=== PATIENT | female | born 1995 | race Caucasian/White ===

== ENCOUNTER 2023-02-06 11:56 | Emergency (ER) | payer MEDICAID, SELFPAY ==
[2023-02-06 11:58] VITALS: BP 148/98; PULSE 111; RESP 20; TEMP 36.2; O2SAT 98; BMI 43.2
[2023-02-06 12:28] LABS: Absolute Lymphocyte Count 2.82 X10^3/uL (0.83-4.51); Absolute Neutrophil Count 5.3 X10^3/uL (2.0-7.7); Basophil# 0.11 X10^3/uL; Basophil% 1.2 % (0-1); Eosinophil# 0.51 X10^3/uL; Eosinophils% 5.4 % (0-5); Hematocrit 42.4 % (37-47); Hemoglobin 13.6 g/dL (12.0-15.0); Lymphocyte # 2.82 X10^3/ul (0.83-4.51); Lymphocyte % 29.6 % (19-41); Mean Corp Hgb Conc 32.1 g/dL (32-36); Mean Corpuscular Volume 84.3 fL (81-99); Mean Platelet Vol. 8.2 fl (6.2-12.0); Monocyte# 0.75 X10^3/uL; Monocyte% 7.9 % (0-10); NRBC Flagged by Analyzer 0 % (0-5); Neutrophil # 5.31 X10^3/uL (2.7-7.7); Neutrophil % 55.6 % (47-70); Platelet Count 443 K/mm3 (150-450); RBC Distribution Width CV 13.2 % (11.6-14.6); RBC Distribution Width SD 40.8 fl (35.1-43.9); Red Blood Count 5.03 M/mm3 (4.2-5.4); White Blood Count 9.5 K/mm3 (4.4-11.0)
[2023-02-06 12:38] LABS: Internal QC Validated? YES +Cl - CLEAR BKGD; Pregnancy, Serum, hCG Quali. NEGATIVE Negative
[2023-02-06 12:57] LABS: Bacteria 0 SEEN /hpf (None Seen); Red Blood Cells-Urine 0 SEEN /hpf (0-5)
[2023-02-06 13:12] LABS: Color, Urine Yellow (Yellow); Glucose, Dipstick Normal (Normal); Ketone-Dipstick Negative (Negative); Leukocyte Esterase-Dipstick 100 /ul (Negative); Nitrite-Dipstick Negative (Negative); Occult Blood-Urine Negative /ul (Negative); Protein-Dipstick 15 mg/dl (Negative); Urine Bilirubin Dipstick Negative (Negative); Urine Clarity Sl. Cloudy (Clear); Urine Urobilinogen Normal (Normal)
[2023-02-06 13:18] LABS: Amorphous Sediment 1+; Mucous, Urine 1+ /hpf (<or=2+); Squamous Epithelial Cells - UA 5-10 SEEN /hpf (5-10); White Blood Cells 0-5 SEEN /hpf (0-5)
--- NOTE | 2023-02-06 14:07 | EDS_ITS ---
HPI HPI - Female History of Present Illness Chief Complaint: Female C/O Detail of Chief Complaint: Presents with pelvic pain and bleeding with intercourse Informant: patient Pain Pain: Positive for Pelvic Pain Onset: Today Context: Sudden Onset Timing: Continuous Quality: Positive for Aching Location: Suprapubic Current Severity: Mild Maximum Severity: Moderate Worsened by: [place] Bleeding Issue: Positive for Vaginal bleeding (With intercourse yesterday and recently with intercourse.) Associated Symptoms Associated Symptoms: Negative for Dysuria, Urgency, Hematuria or Missed Period Last known menstrual period: Has not been compliant with her control pills. Sexually: Positive for Active and Single Partner P: 0 Ab: 1 Narrative Narrative: There is a 27-year-old female who presents with pelvic pain that started this morning. She has noted vaginal bleeding with intercourse recently. She also complains of discomfort yesterday with intercourse. She denies history of STI. She denies history ovarian cysts or endometriosis. She denies urinary symptoms. She denies history of renal or ureteral lithiasis. She denies back or flank pain. She denies vaginal discharge. She has been once and had an elective . Prior similar symptoms: No Recent Illness/Hospitalization: No PFSH PFSH Medical History (Updated 02/06/23 @ 14:[address] Barak Ortiz MD) Medical History no medical history no medical history Home Medications ibuprofen 600 mg tablet 600 mg PO Q6H PRN PRN pain #10 TABLETS 02/06/23 [Rx Last Taken Unknown] Allergy/AdvReac Type Severity Reaction Status Date / Time No Known Allergies Allergy Verified 02/06/23 11:57 Social History (Updated 02/06/23 @ 14:[address] Barak Ortiz MD) household members: significant other Smoking Status: Never smoker ROS ROS ED Constitutional Constitutional ED: Denies chills, fever(s), subjective or sweats Eyes Eyes: Denies blurry vision, change in vision or diplopia ENT ENT ED: Denies ear pain, rhinorrhea or sore throat Cardiovascular Cardiovascular: Denies chest pain or palpitations Respiratory/Chest Respiratory/Chest: Denies cough, dyspnea or dyspnea on exertion Gastrointestinal Gastrointestinal: Reports abdominal pain and nausea; Denies constipation, diarrhea, melena or vomiting Genitourinary Genitourinary ED: Denies dysuria, hematuria or urinary frequency Musculoskeletal Musculoskeletal: Denies arthralgias, myalgias or neck pain Integumentary Denies rash Neurologic Neurologic: Denies headache(s), paresthesias or weakness Endocrine Endocrinology: Denies heat intolerance or polydipsia Hematologic/Lymphatic Hematologic/Lymphatic: Denies easy bleeding or easy bruising EXAM Physical Exam Const Vital Signs: 02/06/23 11:58 Temperature 97.2 F L Temperature Source Temporal Pulse Rate 111 H Respiratory Rate 20 H Blood Pressure 148/98 H Blood Pressure Mean 114 Pulse Ox 98 Oxygen Delivery Method Room Air Positive well nourished, well developed and obese General Appearance ED: well developed and NAD; Negative for pallor Nutritional Appearance: obese HEENT Reports TM's clear and moist mucous membranes HEENT Narrative: Head is atraumatic and normocephalic. Posterior pharynx is normal. Tympanic Membrane ED: Yes TM's clear Eyes PERRL and EOMs intact bilaterally General Eye ED: Negative for pale conjunctiva or scleral icterus Neck no lymphadenopathy, supple and no JVD Chest Wall inspection of chest normal and palpation of chest normal Resp normal respiratory effort and clear to auscultation bilaterally Cardio regular rhythm, S1 normal heart sound, no murmurs and no JVD Rate: tachycardic GI soft to palpation, non-distended and no masses; Negative for non-tender Auscultation: hypoactive bowel sounds Palpation: tender suprapubic; Negative for guarding, rigid, hepatomegaly or splenomegaly Narrative: External genitalia appear normal. Vaginal mucosa is normal. Cervical mucosa is normal. There is no vaginal discharge noted. There is semen noted in the vaginal vault. Patient had discomfort on bimanual exam. There is discomfort pushing on the bladder as well as the right left adnexal area. Patient did not have cervical motion tenderness. Patient states her pain is improved markedly. This would raise concern that pain was due to a ruptured ovarian cyst. Patient was told that she was tested for a sexually transmitted disease. If test results are positive she will be contacted and will need treatment. Back/Spine no CVA tenderness Thoracic Spine / Upper Back: Negative for thoracic spinal tenderness Lumbar Spine / Lower Back: Negative for lumbar spinal tenderness Extremity normal to inspection and full ROM Neuro oriented x3, CN's II-XII intact bilaterally and no sensory deficits noted Sensorium / Orientation: alert Motor Exam: strength 5/5 throughout Psych mental status grossly normal Skin no rashes or lesions noted and no wounds General Skin Exam: Negative for jaundice or pallor MDM MDM MDM Narrative Medical decision making narrative: Since patient is not compliant with control pills need to rule out . Also need to consider ovarian cyst, ovarian torsion, STI, cervicitis. CBC, UA and serum test were obtained. Lab Data Attestation: I reviewed the patient's lab results. Lab results narrative: BC is normal. Serum test is negative. UA is unremarkable. Labs: Laboratory Results - last 24 hr 02/06/23 02/06/23 12:20 12:45 WBC 9.5 RBC 5.03 Hgb 13.6 Hct 42.4 MCV 84.3 MCH 27.0 MCHC 32.1 RDW Std Deviation 40.8 RDW Coeff of [place] 13.2 Plt Count 443 MPV 8.2 Immature Gran % (Auto) 0.300 Neut % (Auto) 55.6 Lymph % (Auto) 29.6 [place] % (Auto) 7.9 Eos % (Auto) 5.4 H Baso % (Auto) 1.2 H Absolute Neuts (auto) 5.3 Absolute Lymphs (auto) 2.82 Nucleated RBC % 0 Serum , Qual NEGATIVE Urine Color Yellow Urine Clarity Sl. Cloudy Urine pH 6.0 Ur Specific [place] 1.020 Urine Protein 15 H Urine Glucose (UA) Normal Urine Ketones Negative Urine Occult Blood Negative Urine Nitrite Negative Urine Bilirubin Negative Urine Urobilinogen Normal Ur Leukocyte Esterase 100 H Urine RBC 0 SEEN Urine WBC 0-5 SEEN Ur Squamous Epith Cells 5-10 SEEN Amorphous Sediment 1+ Urine Bacteria 0 SEEN Urine Mucus 1+ Discharge Plan Triage Chief Complaint: Female C/O ED Provider: Barak Ortiz Dx/Rx/DC Orders Clinical Impression: Acute pain in female pelvis, Dyspareunia, Ovarian cyst rupture Instructions: Treating a Ruptured Ovarian Cyst, ED Ovarian Cyst Prescriptions: New ibuprofen 600 mg tablet 600 mg PO Q6H PRN PRN (Reason: pain) Qty: 10 0RF Primary Care Provider: Gretchen Richey Referrals: Gretchen Richey MD [Primary Care Provider] - 3-5 Days if not improving Disposition Disposition: Home, Self Care
== END 2023-02-06 14:55 | disposition home or self-care (01) ==
PROVIDERS: Emergency Provider Emergency Medicine; PCP Family Medicine; Visit Provider Emergency Medicine
DX: N83.209 Unspecified ovarian cyst, unspecified side (principal); N94.10 Unspecified dyspareunia; E66.9 Obesity, unspecified
CPT/HCPCS: 81001; 84703; 85025; 87491; 87591; 99282; A4216

== ENCOUNTER 2023-09-10 19:34 | Emergency (ER) | payer MEDICAID, SELFPAY ==
[2023-09-10 19:35] VITALS: BP 126/71; PULSE 124; RESP 18; TEMP 36.4; O2SAT 99; BMI 45.1
--- NOTE | 2023-09-10 19:55 | US_ITS ---
INDICATION: bleeding EXAMINATION: US OB Transvaginal TECHNIQUE: Transvaginal (for optimal evaluation of the adnexa) pelvic ultrasound was performed. Grayscale, spectral waveform, and color flow Doppler evaluation of the adnexa. COMPARISON: None. FINDINGS: UTERUS: Measures 8.8 cm in length.. RIGHT OVARY: Measures 2.4 x 2.1 x 2 cm. Normal. LEFT OVARY: Measures 3 x 2.2 x 1.7 cm. Normal. FREE FLUID: None. INTRAUTERINE GESTATIONAL SAC(s) (size/shape): Not visualized. No adnexal ectopic visualized. US/Transvaginal w/Preg US IMPRESSION: of unknown location. No intrauterine gestational sac or adnexal ectopic visualized. Recommend serial beta hCGs and follow-up OB ultrasound in 1-2 weeks. Electronically Signed: Antwon Fish MD at 21:41 EDT ,
--- NOTE | 2023-09-10 19:56 | ED.VIS.FEGU ---
HPI HPI - Female History of Present Illness Chief Complaint: Vag Bld, Preg Detail of Chief Complaint: Vaginal bleeding Informant: patient Narrative Narrative: Patient presents to the emergency department complaint of vaginal bleeding. Patient states the bleeding started yesterday and was mild to some spotting. Now a little heavier but still less than a.. She is not passing clots or tissue. She describes lower abdominal cramping. Patient is G2, P0 with prior . She denies fever or recent illness. She is currently being treated for UTI and still on antibiotic. PFSH PFS Medical History (Updated 09/10/23 @ 22:[address] Gary Man, DO) Home Medications ?Medication ?Instructions ?Recorded ?Last Taken ?Type ibuprofen 600 mg tablet 600 mg PO Q6H PRN PRN pain #10 02/06/23 Unknown Rx TABLETS Allergy/AdvReac Type Severity Reaction Status Date / Time No Known Allergies Allergy Verified 02/06/23 11:57 Social History (Updated 02/06/23 @ 14:[address] Barak Ortiz MD) household members: significant other Smoking Status: Never smoker ROS ROS ED Review of Systems ROS Unobtainable: other Constitutional Constitutional ED: Reports lethargy; Denies chills, fever(s), sweats or weight loss Eyes Eyes: Denies blurry vision, change in vision or diplopia ENT ENT ED: Denies rhinorrhea or sore throat Cardiovascular Cardiovascular: Denies chest pain, orthopnea or racing heartbeat Respiratory/Chest Respiratory/Chest: Denies cough, dyspnea, dyspnea on exertion, orthopnea or sputum Gastrointestinal Gastrointestinal: Reports abdominal pain; Denies diarrhea, nausea or vomiting Genitourinary Genitourinary ED: Reports other Details: Vaginal bleeding with ; Denies dysuria, hematuria or urinary frequency Musculoskeletal Musculoskeletal: Denies arthralgias, back pain, myalgias or neck pain Integumentary Denies abscess, Abrasions or rash Neurologic Neurologic: Denies headache(s) or weakness Psychiatric Psychiatric: Denies anxiety, depression or suicidal thoughts Endocrine Endocrinology: Denies polydipsia, polyphagia or polyuria Hematologic/Lymphatic Hematologic/Lymphatic: Denies easy bleeding, easy bruising or lymphadenopathy Allergic/Immunologic Allergic/Immunologic ED: Denies mouth swelling, tongue swelling or urticaria EXAM Physical Exam Const Vital Signs: 09/10/23 19:35 Temperature 97.6 F L Temperature Source Temporal Pulse Rate 124 H Respiratory Rate 18 Blood Pressure 126/71 H Blood Pressure Mean 89 Pulse Ox 99 Oxygen Delivery Method Room Air Positive well nourished and well developed General Appearance ED: well developed and NAD HEENT Reports TM's clear and moist mucous membranes normocephalic and atraumatic; Negative for trauma or tenderness Tympanic Membrane ED: Yes TM's clear Eyes PERRL and EOMs intact bilaterally General Eye ED: Negative for pale conjunctiva or scleral icterus Neck no lymphadenopathy, supple and no JVD General: Negative for tenderness Chest Wall inspection of chest normal and palpation of chest normal Chest: Negative for tenderness Resp normal respiratory effort and clear to auscultation bilaterally Effort and Inspection: Negative for respiratory distress or pain with movement Auscultation: Negative for rhonchi, wheezes or diminished lung sounds Cardio regular rate, regular rhythm, S1 normal heart sound, S2 normal heart sound and no murmurs Peripheral Pulses: pulses 2+ throughout GI normal to inspection, nondistended, normoactive bowel sounds, soft to palpation, non-tender, non-distended and no masses GI Narrative: Mild tenderness palpation over left lower pelvis and left lower quadrant. No rebound, rigidity, or pineal signs. No mass palpated. Back/Spine no CVA tenderness and no thoracic nor lumbar tenderness Extremity normal to inspection General Extremety ED: Negative for edema General Extremity: Negative for edema Neuro oriented x3, CN's II-XII intact bilaterally, no sensory deficits noted and gait normal Sensorium / Orientation: awake, alert, oriented to person, oriented to place and oriented to time Motor Exam: strength 5/5 throughout and strength abnormal Psych mental status grossly normal Skin no rashes or lesions noted and no wounds MDM MDM MDM Narrative Medical decision making narrative: Presents with vaginal bleeding and thinks she is about 5 weeks . Established. CBC with differential white count 9.8 with hemoglobin 13.9 and platelet count of 454. Chemistries unremarkable. hCG quant was 50. Urinalysis normal. Blood type is A-. Patient had a pelvic ultrasound that did not show any evidence of intrauterine or evidence of ectopic. Discussed case with CLIENT ONBOARDING ANALYST on-call Dr. Cao who did not feel patient needed RhoGAM. She will require repeat quant levels in 2 days. Was already written by Dr. Cao. Patient advised to return to the ER if worsening pain, persistent heavy bleeding such as more than a pad an hour for 4 consecutive hours or condition should worsen anyway. Lab Data Attestation: I reviewed the patient's lab results. Labs: Laboratory Results - last 24 hr 09/10/23 09/10/23 20:06 20:10 WBC 9.8 RBC 5.02 Hgb 13.9 Hct 42.5 MCV 84.7 MCH 27.7 MCHC 32.7 RDW Std Deviation 41.5 RDW Coeff of [place] 13.4 Plt Count 454 H MPV 9.2 Immature Gran % (Auto) 0.200 Neut % (Auto) 51.2 Lymph % (Auto) 35.6 [place] % (Auto) 8.1 Eos % (Auto) 4.0 Baso % (Auto) 0.9 Absolute Neuts (auto) 5.0 Absolute Lymphs (auto) 3.47 Nucleated RBC % 0 HCG, Quant 50 H Urine Color Yellow Urine Clarity Sl. Cloudy Urine pH 5.0 Ur Specific [place] 1.025 Urine Protein 30 H Urine Glucose (UA) Normal Urine Ketones Negative Urine Occult Blood 150 H Urine Nitrite Negative Urine Bilirubin Negative Urine Urobilinogen Normal Ur Leukocyte Esterase 100 H Urine RBC 0 SEEN Urine WBC 0-5 SEEN Ur Squamous Epith Cells 0-5 SEEN Urine Bacteria 0 SEEN Urine Mucus 0 SEEN Blood Type A NEGATIVE Radiography Diagnostic Testing: Clinical Impression(s) from Imaging Studies Obstetrics Ultrasound 09/10/23 19:55 IMPRESSION: of unknown location. No intrauterine gestational sac or adnexal ectopic visualized. Recommend serial beta hCGs and follow-up OB ultrasound in 1-2 weeks. Electronically Signed: Antwon Fish MD at 21:41 EDT , Discharge Plan Triage Chief Complaint: Vag Bld, Preg ED Provider: Gary Man Dx/Rx/DC Orders Clinical Impression: Threatened in first trimester Instructions: Miscarriage Threatened Prescriptions: No Action ibuprofen 600 mg tablet 600 mg PO Q6H PRN PRN (Reason: pain) Qty: 10 0RF Primary Care Provider: Care Physician,No Primary Referrals: Gretchen Richey MD [Non-Staff] - Ania Cao DO [Med Staff - Active Staff] - 2 Days Print Language: Kinyarwanda Disposition Disposition: Home, Self Care
[2023-09-10 20:12] LABS: Bacteria 0 SEEN /hpf (None Seen); Mucous, Urine 0 SEEN /hpf (<or=2+); Red Blood Cells-Urine 0 SEEN /hpf (0-5)
[2023-09-10 20:29] LABS: Absolute Lymphocyte Count 3.47 X10^3/uL (0.83-4.51); Basophil# 0.09 X10^3/uL; Basophil% 0.9 % (0-1); Eosinophil# 0.39 X10^3/uL; Hematocrit 42.5 % (37-47); Hemoglobin 13.9 g/dL (12.0-15.0); Lymphocyte # 3.47 X10^3/ul (0.83-4.51); Lymphocyte % 35.6 % (19-41); Mean Corp Hgb Conc 32.7 g/dL (32-36); Mean Corpuscular Hgb 27.7 pg (27.0-32.0); Mean Corpuscular Volume 84.7 fL (81-99); Mean Platelet Vol. 9.2 fl (6.2-12.0); Monocyte# 0.79 X10^3/uL; Monocyte% 8.1 % (0-10); NRBC Flagged by Analyzer 0 % (0-5); Neutrophil % 51.2 % (47-70); Platelet Count 454 K/mm3 (150-450); RBC Distribution Width CV 13.4 % (11.6-14.6); RBC Distribution Width SD 41.5 fl (35.1-43.9); Red Blood Count 5.02 M/mm3 (4.2-5.4); White Blood Count 9.8 K/mm3 (4.4-11.0)
[2023-09-10 20:37] LABS: Color, Urine Yellow (Yellow); Glucose, Dipstick Normal (Normal); Ketone-Dipstick Negative (Negative); Leukocyte Esterase-Dipstick 100 /ul (Negative); Nitrite-Dipstick Negative (Negative); Occult Blood-Urine 150 /ul (Negative); Protein-Dipstick 30 mg/dl (Negative); Specific Gravity, Urine 1.025 (1.002-1.030); Urine Bilirubin Dipstick Negative (Negative); Urine Clarity Sl. Cloudy (Clear); Urine Urobilinogen Normal (Normal)
[2023-09-10 20:39] LABS: hCG Titer Quant., Serum 50 mIU/mL (1-3)
[2023-09-10 20:44] LABS: Squamous Epithelial Cells - UA 0-5 SEEN /hpf (5-10); White Blood Cells 0-5 SEEN /hpf (0-5)
[2023-09-10 21:34] VITALS: BP 138/99; PULSE 98; RESP 18; O2SAT 99
== END 2023-09-10 22:19 | disposition home or self-care (01) ==
PROVIDERS: Emergency Provider Emergency Medicine; Visit Provider Emergency Medicine
DX: O20.0 Threatened abortion (principal); Z3A.01 Less than 8 weeks gestation of pregnancy
CPT/HCPCS: 76817; 81001; 84702; 85025; 86900; 86901; 99282; A4216

== ENCOUNTER 2023-09-18 12:05 | Emergency (ER) | payer MEDICAID, SELFPAY ==
[2023-09-18 12:05] VITALS: BP 140/100; PULSE 98; RESP 16; TEMP 36.3; O2SAT 96; BMI 45.0
[2023-09-18 13:35] LABS: hCG Titer Quant., Serum 40 mIU/mL (1-3)
[2023-09-18 13:41] LABS: AST(SGOT) 21 U/L (15-37); Alanine Aminotransfer ALT/SGPT 29 U/L (13-56); Albumin, Serum 3.7 g/dL (3.2-5.0); Alkaline Phosphatase 63 U/L (45-117); Anion Gap 8 (5-15); BUN 11 mg/dL (7-18); BUN/Creat Ratio 12.9 RATIO (10-20); Calcium,Total 9.3 mg/dL (8.5-10.1); Chloride 105 mmol/L (98-107); Creatinine, Serum 0.85 mg/dL (0.55-1.02); EST Glomerular Filtration Rate 83 mL/min (>60); Est Glom Filt Rate - Afr Amer 101 mL/min (>60); Estimated Creatinine Clearance 136.22 ml/min; Globulin 3.7 g/dL (2.2-4.2); Glucose 106 mg/dL (74-106); Potassium 4.3 mmol/L (3.5-5.1); Protein, Total 7.4 g/dL (6.4-8.2); Sodium Level 139 mmol/L (136-145)
[2023-09-18 14:05] VITALS: BP 121/82; PULSE 86; RESP 16; O2SAT 98
[2023-09-18] MEDS: Ondansetron 4 MG/2 ML Vial IV (14:28)
[2023-09-18] MEDS: Ketorolac 15 MG/ML Vial IV (14:28)
[2023-09-18] MEDS: METHOTREXATE IM (15:18)
--- NOTE | 2023-09-18 15:19 | NURSING ---
IM INJECTION PER MD
--- NOTE | 2023-09-18 15:45 | EDS_ITS ---
HPI HPI - Female History of Present Illness Chief Complaint: Vag Bld, Preg Informant: patient Narrative Narrative: Patient is G2, P0 presenting with continued cramping and vaginal spotting in early . Patient is been diagnosed with a nonviable and follows with [facility] [employer]. She states that she has had multiple blood draws over the past week and her quant's have been steady. She has had 2 pelvic ultrasounds have not shown anything. She had increased pain today so she was instructed to come to the emergency room by OB triage nurse. Patient was seen in our ER on 09/09 where she had a quant of 50 and a transvaginal ultrasound which did not show any products of conception or signs of IUP. She is since followed up and had multiple blood draws most recently her quant was 46 yesterday and 2 days before that was 32. She has had a repeat pelvic ultrasound which showed no changes. Has not taken any medication for her cramping. No other complaints or concerns reported at this time [facility] Medical History Home Medications ?Medication ?Instructions ?Recorded ?Last Taken ?Type ibuprofen 600 mg tablet 600 mg PO Q6H PRN PRN pain #10 02/06/23 Unknown Rx TABLETS ibuprofen 600 mg tablet 600 mg PO Q6H PRN PRN pain #20 09/18/23 Unknown Rx TABLETS ondansetron HCl 4 mg tablet 4 mg PO Q6H PRN PRN nausea and 09/18/23 Unknown Rx vomiting #12 tabs Allergy/AdvReac Type Severity Reaction Status Date / Time No Known Allergies Allergy Verified 09/18/23 14:10 Social History household members: significant other Smoking Status: Former smoker ROS ROS ED Constitutional Constitutional ED: Denies chills or fever(s) Respiratory/Chest Respiratory/Chest: Denies dyspnea Gastrointestinal Gastrointestinal: Reports abdominal pain and nausea; Denies diarrhea or vomiting Genitourinary Genitourinary ED: Reports other Details: Vaginal bleeding ; Denies dysuria or urinary frequency Musculoskeletal Musculoskeletal: Denies myalgias Integumentary Denies rash Neurologic Neurologic: Denies headache(s) EXAM Physical Exam Const Vital Signs: 09/18/23 12:05 09/18/23 14:05 09/18/23 16:04 Temperature 97.3 F L 97.3 F L Temperature Source Temporal Pulse Rate 98 86 86 Respiratory Rate 16 16 16 Blood Pressure 140/100 H 121/82 H 121/82 H Blood Pressure Mean 113 95 95 Pulse Ox 96 98 98 Oxygen Delivery Method Room Air Room Air Positive well nourished and well developed General Appearance ED: well developed and NAD HEENT Reports moist mucous membranes Neck supple Chest Wall inspection of chest normal Resp normal respiratory effort and clear to auscultation bilaterally Cardio regular rate and regular rhythm GI normal to inspection, nondistended, normoactive bowel sounds and soft to pal pation Palpation: tender LLQ and suprapubic Back/Spine no CVA tenderness Psych mental status grossly normal MDM MDM MDM Narrative Medical decision making narrative: Patient is evaluated for continued spotting and abdominal pain in the setting of a nonviable . Her quant is stagnant. She has had 2 ultrasounds 1 here and 1 outpatients that have not shown any changes. Chart review from her ER visit on 09/09 confirms that her quant was 50 and is now 40. Patient is hemodynamically stable in the emergency room. I spoke with OB on- call, Dr. Alayna Snow, who recommends treating her with methotrexate. Given that has been a week and her quant is going down and is only 40 I think that this is highly appropriate. Concern is that she either has retained products of conception or does have an ectopic . As she is hemodynamically stable I do not think she requires emergent surgery for this at this time. I do not think she has a ruptured ectopic. Dr. Snow does request that I check a liver enzymes before giving the methotrexate. This is performed. Patient is administered methotrexate. Given return precautions. Is given dose of Zofran and Toradol in the emergency room as well. Discharged home in stable condition with close outpatient OB follow-up. Lab Data Labs: Laboratory Results - last 24 hr 09/18/23 12:40 Sodium 139 Potassium 4.3 Chloride 105 Carbon Dioxide 26.0 Anion Gap 8 BUN 11 Creatinine 0.85 Estim Creat Clear Calc 136.22 Est GFR (MDRD) Af Amer 101 Est GFR (MDRD) Non-Af 83 BUN/Creatinine Ratio 12.9 Glucose 106 Calcium 9.3 Total Bilirubin 0.70 AST 21 ALT 29 Alkaline Phosphatase 63 Total Protein 7.4 Albumin 3.7 Globulin 3.7 Albumin/Globulin Ratio 1.0 HCG, Quant 40 H Discharge Plan Triage Chief Complaint: Vag Bld, Preg ED Provider: Lin Hummel Dx/Rx/DC Orders Clinical Impression: , inevitable, Left lower quadrant abdominal pain affecting Instructions: ED MISCARRIAGE Incomplete, ED Methotrexate for Ectopic ... Prescriptions: New ibuprofen 600 mg tablet 600 mg PO Q6H PRN PRN (Reason: pain) Qty: 20 0RF ondansetron HCl 4 mg tablet 4 mg PO Q6H PRN PRN (Reason: nausea and vomiting) Qty: 12 0RF No Action ibuprofen 600 mg tablet 600 mg PO Q6H PRN PRN (Reason: pain) Qty: 10 0RF Stand Alone Forms: ED Work / School Excuse Primary Care Provider: Care Physician,No Primary Referrals: Katherine Snow MD [Med Staff - Active Staff] - 1-2 Days if not improving Care Physician,No Primary [Primary Care Provider] - Activity Restrictions/Additional Instructions: Please continue to follow closely with your [employer]. You should be contacted the next day or 2 for follow-up of please call them if you do not hear from them. Is normal to have some increased cramping and bleeding after receiving methotrexate. You have severe worsening symptoms or further concerns please return to the emergency room. Print Language: [place] Disposition Disposition: Home, Self Care Discharge Date/Time: 09/18/23 16:05
[2023-09-18 16:04] VITALS: BP 121/82; PULSE 86; RESP 16; TEMP 36.3; O2SAT 98
== END 2023-09-18 16:05 | disposition home or self-care (01) ==
PROVIDERS: Emergency Provider Emergency Medicine; Visit Provider Emergency Medicine
DX: O03.4 Incomplete spontaneous abortion without complication (principal); R10.32 Left lower quadrant pain; Z87.891 Personal history of nicotine dependence
CPT/HCPCS: 80053; 84702; 96374; 96375; 99282; A4216; J2405; J9260

== ENCOUNTER 2024-08-17 19:19 | Emergency (ER) | payer MEDICAID, SELFPAY ==
[2024-08-17 19:20] VITALS: BP 133/95; PULSE 117; RESP 98; TEMP 36.8; O2SAT 99; BMI 46.7
--- NOTE | 2024-08-17 19:34 | ED.VIS.FEGU ---
HPI <MIRZA Maya - Last Filed: 08/17/24 22:01> HPI - Female History of Present Illness Chief Complaint: Vag Bld, Preg Narrative Narrative: 29-year-old female Ab2 presents with cramping and spotting in first trimester . She is about 9 weeks . She goes to [facility] and had an ultrasound 4 days ago confirming IUP. 2 days ago she had light spotting without pain that started after intercourse. Today she is having lower abdominal cramping and a little bit heavier spotting with small clump of blood. She has no fever or chills. No nausea or vomiting. No dysuria. She had a an at age 19 and a first trimester miscarriage last year. PFSH <MIRZA Maya - Last Filed: 08/17/24 22:01> [facility] Medical History Home Medications ?Medication ?Instructions ?Recorded ?Last Taken ?Type levothyroxine 25 mcg tablet 25 mcg PO .3 days a week 08/17/24 Unknown History levothyroxine 50 mcg tablet 50 mcg PO .4days aweek 08/17/24 Unknown History Allergy/AdvReac Type Severity Reaction Status Date / Time No Known Allergies Allergy Verified 08/17/24 19:21 Social History household members: significant other Smoking Status: Former smoker ROS <MIRZA Maya - Last Filed: 08/17/24 22:01> ROS ED ROS Narrative Constitutional: Negative for fever, chills, malaise. CVS: Negative for chest pain. Respiratory: Negative for shortness of breath. GI: Positive for abdominal pain. No nausea or vomiting. EXAM <MIRZA Maya - Last Filed: 08/17/24 22:01> Physical Exam Narrative Exam Narrative: CONST: Patient sitting in no acute distress. EYES: Normal inspection. NECK: Normal inspection. RESP: No respiratory distress, CTAB. CVS: Regular rate and rhythm, no murmur, no gallop. ABD: Soft with mild suprapubic tenderness, no guarding or rebound, nondistended. : Normal external genitalia. Speculum exam shows mild amount of brown mucus. No bright red bleeding. Could not visualize the cervix. SKIN: Color normal, no rash, warm, dry, intact. EXTREMITIES: Normal appearance, no pedal edema. NEURO: Alert and answering questions appropriately. PSYCH: Normal affect. Const Vital Signs: 08/17/24 19:20 Temperature 98.2 F Temperature Source Oral Pulse Rate 117 H Respiratory Rate 98 H Blood Pressure 133/95 H Blood Pressure Mean 107 Pulse Ox 99 Oxygen Delivery Method Room Air <Andreas Galdamez MD - Last Filed: 08/17/24 22:24> Physical Exam Const Vital Signs: 08/17/24 19:20 Temperature 98.2 F Temperature Source Oral Pulse Rate 117 H Respiratory Rate 98 H Blood Pressure 133/95 H Blood Pressure Mean 107 Pulse Ox 99 Oxygen Delivery Method Room Air MDM <MIRZA Maya - Last Filed: 08/17/24 22:01> MDM MDM Narrative Medical decision making narrative: Differential includes threatened versus complete miscarriage 29-year-old female who is G3, P0 Ab2 is approximately 9 weeks with recent ultrasound confirming IUP presenting with lower abdominal cramping and spotting. Light spotting a few days ago and then it returned again today with pain. She appears well and nontoxic. She was tachycardic at 117 with otherwise normal vital signs but she is very anxious and tearful. She does not look ill. Abdomen is soft, benign. Pelvic exam showed small amount of brown blood with no signs of active bleeding. I cannot visualize her cervix due to her body habitus. Hemoglobin is normal at 13.6. hCG level is 30,618. Blood type is A- but the ACOG updated recommendation states RhoGAM is no longer indicated in first trimester bleeding. Urinalysis is contaminated without bacteria. Transvaginal ultrasound is consistent with early loss with no cardiac activity seen. I informed the patient of her results, counseled on symptomatic care at home, and instructed her to follow-up with her [employer]. She was discharged in stable condition. History & Record Review Discussion w/independent historian: Patient Additional record(s) reviewed:: Prior labs Lab Data Attestation: I reviewed the patient's lab results. Labs: Laboratory Results - last 24 hr 08/17/24 08/17/24 19:35 19:55 WBC 8.3 RBC 4.87 Hgb 13.6 Hct 41.5 MCV 85.2 MCH 27.9 MCHC 32.8 RDW Std Deviation 41.1 RDW Coeff of [place] 13.2 Plt Count 490 H MPV 8.3 Immature Gran % (Auto) 0.400 Neut % (Auto) 50.1 Lymph % (Auto) 37.8 [place] % (Auto) 8.2 Eos % (Auto) 2.7 Baso % (Auto) 0.8 Absolute Neuts (auto) 4.1 Absolute Lymphs (auto) 3.13 Nucleated RBC % 0 HCG, Quant 67185 H Urine Color Yellow Urine Clarity Sl. Cloudy Urine pH 6.0 Ur Specific [place] 1.025 Urine Protein 15 H Urine Glucose (UA) Normal Urine Ketones Negative Urine Occult Blood 150 H Urine Nitrite Negative Urine Bilirubin Negative Urine Urobilinogen Normal Ur Leukocyte Esterase 25 H Urine RBC 0-5 SEEN Urine WBC 0-5 SEEN Ur Squamous Epith Cells 10-25 SEEN Urine Bacteria RARE Urine Mucus 0 SEEN Blood Type A NEGATIVE Radiography Diagnostic Testing: Clinical Impression(s) from Imaging Studies Obstetrics Ultrasound 08/17/24 19:39 IMPRESSION: Findings diagnostic of early loss, with crown-rump length of 1.9 cm and no cardiac activity identified. Reading Location: [id number] <Andreas Galdamez MD - Last Filed: 08/17/24 22:24> [facility] Lab Data Labs: Laboratory Results - last 24 hr 08/17/24 08/17/24 19:35 19:55 WBC 8.3 RBC 4.87 Hgb 13.6 Hct 41.5 MCV 85.2 MCH 27.9 MCHC 32.8 RDW Std Deviation 41.1 RDW Coeff of [place] 13.2 Plt Count 490 H MPV 8.3 Immature Gran % (Auto) 0.400 Neut % (Auto) 50.1 Lymph % (Auto) 37.8 [place] % (Auto) 8.2 Eos % (Auto) 2.7 Baso % (Auto) 0.8 Absolute Neuts (auto) 4.1 Absolute Lymphs (auto) 3.13 Nucleated RBC % 0 HCG, Quant [id number] H Urine Color Yellow Urine Clarity Sl. Cloudy Urine pH 6.0 Ur Specific [place] 1.025 Urine Protein 15 H Urine Glucose (UA) Normal Urine Ketones Negative Urine Occult Blood 150 H Urine Nitrite Negative Urine Bilirubin Negative Urine Urobilinogen Normal Ur Leukocyte Esterase 25 H Urine RBC 0-5 SEEN Urine WBC 0-5 SEEN Ur Squamous Epith Cells 10-25 SEEN Urine Bacteria RARE Urine Mucus 0 SEEN Blood Type A NEGATIVE Radiography Diagnostic Testing: Clinical Impression(s) from Imaging Studies Obstetrics Ultrasound 08/17/24 19:39 IMPRESSION: Findings diagnostic of early loss, with crown-rump length of 1.9 cm and no cardiac activity identified. Reading Location: [id number] Treatment and Re-Evaluation Narrative: Dr. Galdamez: I have personally performed a face to face assessment of the patient and have reviewed the VIOLETA Note. I performed a substantive portion of the visit including all aspects of the following. My flores findings include: History is vaginal bleeding with . Ab2 at approximately 8 weeks gestation. Started having vaginal spotting/bleeding. Exam is afebrile. Vital signs noted. Nontoxic-appearing. Cardiovascular examination reveals mild tachycardia. Lungs clear to auscultation bilaterally. Abdomen soft and nontender without guarding or rebound. Medical Decision Making: Differential includes threatened versus intrauterine demise versus subchorionic hemorrhage. Check ultrasound. Check pelvic. Check labs. Review of her ultrasound shows no evidence of cardiac activity and a fetus of approximately 8 weeks gestation. Although she is A Negative and her blood type, according to the [employer]'s, as she is less than 12 weeks gestation she does not require RhoGAM. Follow-up [employer]. Disposition is discharged. Other additions or changes: [None] Discharge Plan Triage Chief Complaint: Vag Bld, Preg ED Midlevel Provider: Sheron Richardson ED Provider: Andreas Galdamez Dx/Rx/DC Orders Clinical Impression: Incomplete miscarriage Instructions: ED MISCARRIAGE Incomplete Prescriptions: No Action levothyroxine 25 mcg tablet 25 mcg PO .3 days a week levothyroxine 50 mcg tablet 50 mcg PO .4days aweek Rx Instructions: 4x a week Primary Care Provider: JEANNA DHALIWAL Referrals: Care Physician,No Primary [Non-Staff] - Activity Restrictions/Additional Instructions: Your ultrasound showed you are having a loss. There is no heart beat seen. You will likely develop heavier bleeding and may have clots and cramping pain. You can take Tylenol and ibuprofen as needed. Please follow-up with your [employer] this week. Print Language: Divehi Disposition Disposition: Home, Self Care
--- NOTE | 2024-08-17 19:39 | US_ITS ---
PROCEDURE: TRANSVAGINAL W/PREG US 08/17/2024 REASON FOR EXAM: BLEEDING TECHNIQUE: Transvaginal pelvic ultrasound with color Doppler and M-mode. COMPARISON: None FINDINGS: Number of Gestational Sacs: 1 Gestational Sac Shape: Normal Number of Fetuses: 1 Heart Rate: Not identified Yolk Sac: Present and unremarkable. Uterine Abnormalities: The uterus measures 10.9 x 6.4 x 6.5 cm. There is trace fluid present within the endometrial canal at the lower uterine segment. Ovaries / Adnexa: The right ovary was not visualized due to shadowing bowel gas. The left ovary measures 3.1 x 2.4 x 1.7 cm and contains a dominant follicle. DIMENSIONS: Parameter Measurement / EGA [place] Rump Length: 1.9 cm/8 weeks 2 days +/-6 days Gestational Sac: 3.0 cm/8 weeks 1 day +/-10 days Yolk Sac: 0.5 cm ESTIMATED GESTATIONAL AGE: By Ultrasound: 8 weeks 2 days By LMP: 8 weeks 6 days ESTIMATED DATE OF DELIVERY: By Ultrasound: 03/27/2025 By LMP: 03/23/2025 US/Transvaginal w/Preg US IMPRESSION: Findings diagnostic of early loss, with crown-rump length of 1.9 cm a nd no cardiac activity identified. Reading Location: [facility]
[2024-08-17 19:47] LABS: Absolute Lymphocyte Count 3.13 X10^3/uL (0.83-4.51); Absolute Neutrophil Count 4.1 X10^3/uL (2.0-7.7); Basophil# 0.07 X10^3/uL; Basophil% 0.8 % (0-1); Eosinophil# 0.22 X10^3/uL; Eosinophils% 2.7 % (0-5); Hematocrit 41.5 % (37-47); Hemoglobin 13.6 g/dL (12.0-15.0); Lymphocyte # 3.13 X10^3/ul (0.83-4.51); Lymphocyte % 37.8 % (19-41); Mean Corp Hgb Conc 32.8 g/dL (32-36); Mean Corpuscular Hgb 27.9 pg (27.0-32.0); Mean Corpuscular Volume 85.2 fL (81-99); Mean Platelet Vol. 8.3 fl (6.2-12.0); Monocyte# 0.68 X10^3/uL; Monocyte% 8.2 % (0-10); NRBC Flagged by Analyzer 0 % (0-5); Neutrophil # 4.14 X10^3/uL (2.7-7.7); Neutrophil % 50.1 % (47-70); Platelet Count 490 K/mm3 (150-450); RBC Distribution Width CV 13.2 % (11.6-14.6); RBC Distribution Width SD 41.1 fl (35.1-43.9); Red Blood Count 4.87 M/mm3 (4.2-5.4); White Blood Count 8.3 K/mm3 (4.4-11.0)
[2024-08-17 20:05] LABS: Mucous, Urine 0 SEEN /hpf (<or=2+)
[2024-08-17 20:10] LABS: Color, Urine Yellow (Yellow); Glucose, Dipstick Normal (Normal); Ketone-Dipstick Negative (Negative); Leukocyte Esterase-Dipstick 25 /ul (Negative); Nitrite-Dipstick Negative (Negative); Occult Blood-Urine 150 /ul (Negative); Protein-Dipstick 15 mg/dl (Negative); Specific Gravity, Urine 1.025 (1.002-1.030); Urine Bilirubin Dipstick Negative (Negative); Urine Clarity Sl. Cloudy (Clear); Urine Urobilinogen Normal (Normal)
[2024-08-17 20:30] LABS: Squamous Epithelial Cells - UA 10-25 SEEN /hpf (5-10)
[2024-08-17 20:31] LABS: Red Blood Cells-Urine 0-5 SEEN /hpf (0-5); White Blood Cells 0-5 SEEN /hpf (0-5)
[2024-08-17 20:32] LABS: Bacteria RARE /hpf (None Seen)
[2024-08-17 20:56] LABS: hCG Titer Quant., Serum 30618 mIU/mL (<9 non-preg)
[2024-08-17 22:26] VITALS: BP 144/87; PULSE 97; RESP 18; TEMP 36.3; O2SAT 98
== END 2024-08-17 22:27 | disposition home or self-care (01) ==
PROVIDERS: Physician Assistant; Emergency Provider Emergency Medicine; Visit Provider Emergency Medicine
DX: O03.4 Incomplete spontaneous abortion without complication (principal); Z87.891 Personal history of nicotine dependence
CPT/HCPCS: 76817; 81001; 84702; 85025; 86900; 86901; 99283; A4216